=== PATIENT | male | born 1930 | race Caucasian/White ===

== ENCOUNTER 2016-07-07 17:58 | Emergency (ER) | payer MEDICARE, OTHER ==
[~2016-07-07] VITALS: Ht 152.4 cm; Wt 61.0 kg
[~2016-07-07 17:58] MED LIST: ADV25050 INHALATION; ASPI-664 PO; DOCU-144 PO; HYDR-3011 PO; HYDR-762 PO; HYDR25SU24 PR; IBUP400T22 PO; MAG355OR15 PO; MONT10TA24 PO; OMEP20CA16 PO; ONDA4TAB35 PO; PHEN-538 PO; PROP40TA4 PO; SENN-53 PO; SIMV20TA2 PO; TAMS-14 PO; TERA5CAP3 PO; TIOT18CA INHALATION; TYL500 PO
[2016-07-07 18:00] VITALS: Ht 152.4 cm; Wt 61.0 kg
--- NOTE | 2016-07-07 21:46 | ERA ---
ER Documentation Chief Complaint Date/Time DATE: 07/07/16 TIME: 21:44 Chief Complaint Asthma HPI The patient is a 85-year-old male, presenting to the ER because of multiple problems, asthma, prostate problem, hemorrhoids, painful urination. He has had these symptoms for many years, unable to see his physician. He denies fever, cough, neck pain, chest pain. He complains of minimal abdominal discomfort due to painful urination and hemorrhoids. He denies nausea, vomiting, diarrhea or constipation. He does not smoke nor drink Past medical history: Asthma, BPH, dyslipidemia Past surgical history: Hemorrhoidectomy, TURP ROS All systems reviewed and are negative except as per history of present illness. Medications Home Meds Active Scripts Hydrocortisone Acetate (Anusol-Hc) 25 Mg Supp.rect, 1 SUPP LA BID Y for HEMORROID PAIN/ITCHING, #12 SUPP.RECT Prov:GURPREET AGUILAR MD 07/07/16 Albuterol Sulfate* (Proair HFA*) 8.5 Gm Hfa.aer.ad, 2 PUFF INH Q4, #1 INHALER Prov:GURPREET AGUILAR MD 07/07/16 Acetaminophen* (Tylenol*) 500 Mg Tab, 500 MG PO Q4H Y for MILD PAIN LEVEL 1-3, # 20 TAB Prov:FAUSTO RUVALCABA DO 10/03/15 Ibuprofen* (Motrin*) 400 Mg Tab, 400 MG PO Q8 for PAIN, #30 TAB Prov:KELLIE BARRAZA MD 09/25/15 Mag Hydrox/Al Hydrox/Simeth (Maalox Ms Liquid) 360 Ml Oral.susp, 2 TSP PO TID, # 24 OZ Prov:KELLIE BARRAZA MD 09/25/15 Sennosides* (Senna Lax*) 8.6 Mg Tablet, 1 TAB PO DAILY, #30 TAB Prov:EVERETT FRIEDMAN MD 09/02/15 Docusate Sodium* (Colace*) 100 Mg Capsule, 100 MG PO TID, #30 CAP Prov:EVERETT FRIEDMAN MD 09/02/15 Phenazopyridine Hcl* (Pyridium*) 200 Mg Tab, 200 MG PO TID Y for URINARY PAIN, # 6 TAB Prov:EVERETT FRIEDMAN MD 09/02/15 Tamsulosin Hcl* (Flomax*) 0.4 Mg Cap.er.24h, 0.4 MG PO QPM, #30 CAP Prov:EVERETT FRIEDMAN MD 08/17/15 Ondansetron Hcl* (Zofran* ODT) 4 mg -ODT Tab.disper, 4 MG PO Q6 Y for NAUSEA AND /OR VOMITING, #30 TAB Prov:EVERETT FRIEDMAN MD 08/17/15 Hydrocodone Bit-Acetaminophen* ([place]*) 10-325 Mg Tablet, 1 TAB PO Q6 Y for PAIN , #7 TAB Prov:EVERETT FRIEDMAN MD 08/17/15 Hydrocortisone Acetate* (Anusol-HC*) 25 Mg/Supp.rect Supp.rect, 1 SUPP LA BID Y for HEMORROID PAIN/ITCHING, #12 SUPP.RECT Prov:DARNELL CRAIG MD 07/23/15 Reported Medications Propranolol Hcl* (Propranolol Hcl*) 40 Mg Tablet, 20 MG PO DAILY, TAB 07/23/15 Omeprazole* (Omeprazole*) 20 Mg Capsule.dr, 20 MG PO DAILY, #30 CAP 07/23/15 Montelukast Sodium* (Montelukast Sodium*) 10 Mg Tablet, 10 MG PO QHS, #30 TAB 07/23/15 Hydroxyzine Hcl* (Hydroxyzine Hcl*) 25 Mg Tablet, 25 MG PO DAILY Y for ITCHING, #30 TAB 07/23/15 Aspirin (Aspirin Low Dose) 81 Mg Tablet.dr, 81 MG PO DAILY, #30 TAB 07/23/15 Salmeterol Xinaf/Fluticasone* (Advair*) 250-50 Diskus Inhaler, 1 INH INHALATION BID, #1 INHALER 07/23/15 Terazosin Hcl* (Terazosin Hcl*) 5 Mg Capsule, 5 MG PO HS, CAP 07/23/15 Tiotropium [place]* (Spiriva*) 18 Mcg Cap.w.dev, 1 CAP INHALATION DAILY, #30 CAP 07/23/15 Simvastatin (Simvastatin) 20 Mg Tablet, 20 MG PO DAILY, #30 TAB 07/23/15 Allergies Allergies: Coded Allergies: No Known Allergy (Unverified , 07/23/15) PMhx/Soc History of Surgery: Yes Anesthesia Reaction: No Hx Neurological Disorder: No Hx Respiratory Disorders: Yes (ASTHMA) Hx Cardiac Disorders: Yes (htn) Hx Psychiatric Problems: No Hx Miscellaneous Medical Probl: Yes (PROSTATE PROBLEM) Hx Alcohol Use: No Hx Substance Use: No Hx Tobacco Use: No Physical Exam Vitals Vital Signs Date Time Temp Pulse Resp B/P Pulse Ox O2 Delivery O2 Flow Rate FiO2 07/07/16 18:00 99.1 68 18 145/65 96 Physical Exam Const: No acute distress. Head: Atraumatic. Eyes: Normal Conjunctiva. ENT: Normal External Ears, Nose and Mouth. Neck: Full range of motion. No meningismus. Resp: Clear to auscultation bilaterally. Cardio: Regular rate and rhythm, no murmurs. Abd: Soft, non distended, normal bowel sounds, non tender. Skin: No petechiae or rashes. Back: No midline or flank tenderness. Ext: No cyanosis, or edema. Neur: Awake and alert. No focal deficit Psych: Normal Mood and Affect. Result Diagram: 07/07/16223107/07/162231 Results 24 hrs Laboratory Tests Test 07/07/16 22:21 07/07/16 22:32 Bedside Urine pH (LAB) 5.5 Bedside Urine Protein (LAB) 1+ Bedside Urine Glucose (UA) Negative Bedside Urine Ketones (LAB) Trace Bedside Urine Blood Trace-intact Bedside Urine Nitrite (LAB) Negative Bedside Urine Leukocyte Esterase (L Negative White Blood Count 6.310^3/ul Red Blood Count 4.1810^6/ul Hemoglobin 12.3g/dl Hematocrit 37.8% Mean Corpuscular Volume 90.4fl Mean Corpuscular Hemoglobin 29.4pg Mean Corpuscular Hemoglobin Concent 32.5g/dl Red Cell Distribution Width 13.2% Platelet Count 01539^3/UL Mean Platelet Volume 9.8fl Neutrophils % 59.4% Lymphocytes % 25.6% Monocytes % 9.2% Eosinophils % 5.2% Basophils % 0.3% Nucleated Red Blood Cells % 0.0/100WBC Neutrophils # 3.810^3/ul Lymphocytes # 1.610^3/ul Monocytes # 0.610^3/ul Eosinophils # 0.310^3/ul Basophils # 0.010^3/ul Nucleated Red Blood Cells # 0.010^3/ul Sodium Level 142mmol/L Potassium Level 4.1mmol/L Chloride Level 103mmol/L Carbon Dioxide Level 28mmol/L Anion Gap 15 Blood Urea Nitrogen 24mg/dl Creatinine 0.95mg/dl Glucose Level 84mg/dl Calcium Level 9.1mg/dl Total Bilirubin 0.3mg/dl Direct Bilirubin 0.00mg/dl Indirect Bilirubin 0.3mg/dl Aspartate Amino Transf (AST/SGOT) 29IU/L Alanine Aminotransferase (ALT/SGPT) 31IU/L Alkaline Phosphatase 59IU/L Total Protein 7.5g/dl Albumin 4.2g/dl Globulin 3.30g/dl Albumin/Globulin Ratio 1.27 Lipase 73U/L Procedures/MDM MEDICAL MAKING DECISION: The patient is 85-year-old male, presenting with multiple chronic medical problems, asthma, hemorrhoids, dysuria. He is stable for outpatient follow-up. The differential diagnoses considered include but are not limited to GI malignancy, cholelithiasis, cholecystitis, cystitis, pancreatitis, hepatitis, gastritis, peptic ulcer disease, gastric ulcer, appendicitis, diverticulitis, cholangitis, choledocholithiasis, partial small bowel obstruction. Departure Diagnosis: Primary Impression: Asthma Additional Impressions: Hemorrhoid Dysuria Anemia Condition: Good Comments He was discharged with albuterol inhaler, Anusol HC Suppository and advised to follow-up with his physician in 1-2 day, return if any concern The patient's blood pressure was elevated (>120/80) but appears stable without evidence of hypertension emergency or urgency. The patient was counseled about the risks of hypertension and urged to pursue outpatient monitoring and therapy within a week with their primary care physician. GURPREET AGUILAR MD July 07, 2016 21:46
[2016-07-07 22:21] LABS: URINE BLOOD (Dip) POC Trace-intact (NEGATIVE)
[2016-07-07 23:01] LABS: ADD SCAN DIFF NO
[2016-07-07 23:07] LABS: BASOPHILS % 0.3 % (0.0-2.0); EOSINOPHILS # 0.3 10^3/ul (0.0-0.5); EOSINOPHILS % 5.2 % (0.0-7.0); HEMATOCRIT 37.8 % (42.0-52.0); HEMOGLOBIN 12.3 g/dl (14.0-18.0); LYMPHOCYTES # 1.6 10^3/ul (0.8-2.9); LYMPHOCYTES % 25.6 % (15.0-51.0); MEAN CORPUSCULAR HEMOGLOBIN 29.4 pg (29.0-33.0); MEAN CORPUSCULAR HGB CONC 32.5 g/dl (32.0-37.0); MEAN CORPUSCULAR VOLUME 90.4 fl (82.0-101.0); MEAN PLATELET VOLUME 9.8 fl (7.4-10.4); MONOCYTE # 0.6 10^3/ul (0.3-0.9); MONOCYTES % 9.2 % (0.0-11.0); NEUTROPHIL # 3.8 10^3/ul (1.6-7.5); NEUTROPHILS % 59.4 % (39.0-77.0); PLATELET COUNT 177 10^3/UL (140-415); RED BLOOD COUNT 4.18 10^6/ul (4.70-6.10); RED CELL DISTRIBUTION WIDTH 13.2 % (11.5-14.5); WHITE BLOOD COUNT 6.3 10^3/ul (4.8-10.8)
--- NOTE | 2016-07-07 23:26 | RADRPT ---
PROCEDURE: XR Chest. CLINICAL INDICATION: Pain. TECHNIQUE: Single frontal chest x-ray. COMPARISON: None. FINDINGS: The heart is mildly enlarged.. There is no congestive heart failure.. Minimal dependent atelectasis .. There is no pleural effusion. There is no pneumothorax. There are degenerative changes of the thoracic spine.. IMPRESSION: Cardiomegaly. Minimal dependent atelectasis. RPTAT: HMVK .Gene Gaspar MD, MD Date Time Electronically viewed and signed by .Gene Gaspar MD, on 07/07/2016 23:26 .K/
[2016-07-07 23:33] LABS: ALBUMIN 4.2 g/dl (3.3-4.9)
[2016-07-07 23:34] LABS: POTASSIUM 4.1 mmol/L (3.5-5.1)
[2016-07-07 23:36] LABS: BILIRUBIN,INDIRECT 0.3 mg/dl (0-1.1); BILIRUBIN,TOTAL 0.3 mg/dl (0.2-1.3); CREATININE 0.95 mg/dl (0.61-1.24)
[2016-07-07 23:37] LABS: ALBUMIN/GLOBULIN RATIO 1.27; CALCIUM 9.1 mg/dl (8.4-10.2); TOTAL PROTEIN 7.5 g/dl (6.1-8.1)
[2016-07-07] MEDS ORDERED: HYDR25SU23 PR (23:51)
[2016-07-07] MEDS ORDERED: ALBU8.5H3 INH (23:51)
[2016-07-08 00:10] VITALS: BP 137/66; PULSE 74; RESP 17; TEMP 98.7
== END 2016-07-08 00:34 | disposition home or self-care (01) ==
LOC: E/R 17:58
DX: J45.909 Unspecified asthma, uncomplicated (principal); K64.9 Unspecified hemorrhoids; R30.0 Dysuria; D64.9 Anemia, unspecified; I10 Essential (primary) hypertension; Z79.82 Long term (current) use of aspirin
CPT/HCPCS: 36415; 71010; 80053; 81003; 83690; 85025

== ENCOUNTER 2016-10-05 20:36 | Emergency (ER) | payer MEDICARE, OTHER ==
[~2016-10-05] VITALS: Wt 59.0 kg
[~2016-10-05 20:36] MED LIST changes: +ALBU8.5H3 INH; +HYDR25SU23 PR
--- NOTE | 2016-10-06 02:22 | RADRPT ---
PROCEDURE: XR Chest. CLINICAL INDICATION: Abdominal pain TECHNIQUE: Single frontal view of the chest was obtained COMPARISON: 07/07/2016 FINDINGS: There is hypoinflation of the lungs. This along with portable AP technique accentuates the size of the cardiac silhouette. The heart does not appear to be grossly enlarged. Mild tortuosity of thora cic aorta again seen. Calcification in the aortic arch. Degenerative changes in thoracic spine, ri ght acromioclavicular joint. There is minimal prominence of the lung interstitium likely minimal chr onic changes. Likely linear atelectasis/fibrosis in medial left lower lung again seen. IMPRESSION: No acute disease. Please see above. RPTAT: HJES .Severiano Jo MD, MD Date Time Electronically viewed and signed by .Severiano Jo MD, MD on 10/06/2016 02:21 .S/
--- NOTE | 2016-10-06 02:23 | RADRPT ---
PROCEDURE: Soft tissue of the neck CLINICAL INDICATION: Neck pain TECHNIQUE: AP and lateral soft tissue views of the neck were performed. COMPARISON: None FINDINGS: No abnormality of visualized soft tissues of the neck is seen. Degenerative changes are seen in the visualized cervical spine including vertebral body osteophyte formation at C3-4 and C4-5 and disk s pace narrowing at C4-5 and approximate 2 mm anterior displacement of C4 vertebral body on C5. Facet degenerative changes at multiple levels. Uncovertebral degenerative changes at multiple levels. C alcification in the aortic arch. IMPRESSION: No abnormality of the visualized soft tissues of the neck seen. Degenerative changes in visualized cervical spine. Please see above. RPTAT: HJES .Severiano Jo MD, MD Date Time Electronically viewed and signed by .Severiano Jo MD, on 10/06/2016 02:23 .S/
[2016-10-06 02:24] LABS: BASOPHILS % 0.3 % (0.0-2.0); EOSINOPHILS # 0.4 10^3/ul (0.0-0.5); EOSINOPHILS % 6.2 % (0.0-7.0); HEMATOCRIT 36.4 % (42.0-52.0); HEMOGLOBIN 12.2 g/dl (14.0-18.0); LYMPHOCYTES # 1.5 10^3/ul (0.8-2.9); LYMPHOCYTES % 24.5 % (15.0-51.0); MEAN CORPUSCULAR HEMOGLOBIN 30.1 pg (29.0-33.0); MEAN CORPUSCULAR HGB CONC 33.5 g/dl (32.0-37.0); MEAN CORPUSCULAR VOLUME 89.9 fl (82.0-101.0); MONOCYTE # 0.7 10^3/ul (0.3-0.9); MONOCYTES % 11.7 % (0.0-11.0); NEUTROPHIL # 3.5 10^3/ul (1.6-7.5); PLATELET COUNT 170 10^3/UL (140-415); RED BLOOD COUNT 4.05 10^6/ul (4.70-6.10); RED CELL DISTRIBUTION WIDTH 13.2 % (11.5-14.5); WHITE BLOOD COUNT 6.2 10^3/ul (4.8-10.8)
[2016-10-06 02:32] LABS: ADD UMIC YES; UR ASCORBIC ACID NEGATIVE (NEGATIVE); UR BILIRUBIN (Dip) NEGATIVE (NEGATIVE); UR BLOOD (Dip) NEGATIVE (NEGATIVE); UR CLARITY SLIGHTLY CLOUDY (CLEAR); UR COLOR YELLOW (YELLOW); UR GLUCOSE (Dip) NEGATIVE (NEGATIVE); UR KETONES (Dip) NEGATIVE (NEGATIVE); UR LEUKOCYTE ESTERASE (Dip) TRACE Leu/ul (NEGATIVE); UR MUCUS FEW /HPF (NONE SEEN); UR NITRITE (Dip) NEGATIVE (NEGATIVE); UR RBC 4 /HPF (0-5); UR SPECIFIC GRAVITY (Dip) 1.021 (1.003-1.030); UR TOTAL PROTEIN (Dip) 1+ mg/dl (NEGATIVE); UR UROBILINOGEN (Dip) NEGATIVE (NEGATIVE)
[2016-10-06] MEDS ORDERED: CYCL1DRO BOTH EYES (03:35)
[2016-10-06] MEDS ORDERED: LIDO20SO19 MM (03:35)
[2016-10-06] MEDS ORDERED: NAPR-683 PO (03:35)
[2016-10-06] MEDS ORDERED: OXYB5TAB22 PO (03:35)
[2016-10-06] MEDS ORDERED: THEO400T2 PO (03:35)
[2016-10-06] MEDS ORDERED: MECL-77 PO (03:35)
[2016-10-06 03:58] LABS: CALCIUM 8.9 mg/dl (8.4-10.2); CREATININE 1.1 mg/dl (0.61-1.24); POTASSIUM 3.9 mmol/L (3.5-5.1)
[2016-10-06 04:54] VITALS: BP 108/68; PULSE 71; RESP 20
--- NOTE | 2016-10-06 05:08 | ERD ---
ER Documentation Chief Complaint Date/Time DATE: 10/06/16 TIME: 05:03 Chief Complaint AP and SOB. Urine problem HPI 86-year-old male presenting with multiple complaints. He states that for 3 months he has been having neck discomfort in the front portion of his neck with pain. He states that sometimes he has difficulty breathing. He has not seen his primary care doctor about this. He also complains of constipation but did have a bowel movement today that was normal. He states that he has a lot of prostate problems as well but denies any dysuria or hematuria. He is not taking any of his medications because he does not think he needs them. He denies any fever, chills, chest pain, shortness of breath at this time. When asked him why he has not talked to his primary care doctor about this, he has no answer. ROS All systems reviewed and are negative except as per history of present illness. Medications Home Meds Active Scripts Albuterol Sulfate* (Proair HFA*) 8.5 Gm Hfa.aer.ad, 2 PUFF INH Q4, #1 INHALER Prov:GURPREET AGUILAR MD 07/07/16 Docusate Sodium* (Colace*) 100 Mg Capsule, 100 MG PO TID, #30 CAP Prov:EVERETT FRIEDMAN MD 09/02/15 Tamsulosin Hcl* (Flomax*) 0.4 Mg Cap.er.24h, 0.4 MG PO QPM, #30 CAP Prov:EVERETT FRIEDMAN MD 08/17/15 Hydrocortisone Acetate* (Anusol-HC*) 25 Mg/Supp.rect Supp.rect, 1 SUPP OK BID Y for HEMORROID PAIN/ITCHING, #12 SUPP.RECT Prov:DARNELL CRAIG MD 07/23/15 Reported Medications Oxybutynin Chloride* (Ditropan* XL) 5 Mg Tabsr, 5 MG PO DAILY, TAB.SA 10/06/16 Naproxen* (Naproxen*) 250 Mg Tablet, 250 MG PO BID, TAB 10/06/16 Meclizine Hcl* (Meclizine Hcl*) 25 Mg Tablet, 25 MG PO Q8H Y for DIZZINESS, TAB 10/06/16 Lidocaine (Lidocaine Viscous) 100 Ml Soln, 100 ML MM 10/06/16 Theophylline Anhydrous* (Theophylline* ER) 400 Mg Tablet.sa, 400 MG PO BID, TAB.SA 10/06/16 Cyclosporine (RESTASIS) 1 Each Droperette, 1 DROP BOTH EYES Q12, #1 BOX 10/06/16 Omeprazole* (Omeprazole*) 20 Mg Capsule.dr, 20 MG PO DAILY, #30 CAP 07/23/15 Montelukast Sodium* (Montelukast Sodium*) 10 Mg Tablet, 10 MG PO QHS, #30 TAB 07/23/15 Hydroxyzine Hcl* (Hydroxyzine Hcl*) 25 Mg Tablet, 25 MG PO DAILY Y for ITCHING, #30 TAB 07/23/15 Aspirin (Aspirin Low Dose) 81 Mg Tablet.dr, 81 MG PO DAILY, #30 TAB 07/23/15 Terazosin Hcl* (Terazosin Hcl*) 5 Mg Capsule, 5 MG PO HS, CAP 07/23/15 Tiotropium [place]* (Spiriva*) 18 Mcg Cap.w.dev, 1 CAP INHALATION DAILY, #30 CAP 07/23/15 Simvastatin (Simvastatin) 20 Mg Tablet, 20 MG PO DAILY, #30 TAB 07/23/15 Discontinued Reported Medications Propranolol Hcl* (Propranolol Hcl*) 40 Mg Tablet, 20 MG PO DAILY, TAB 07/23/15 Salmeterol Xinaf/Fluticasone* (Advair*) 250-50 Diskus Inhaler, 1 INH INHALATION BID, #1 INHALER 07/23/15 Discontinued Scripts Hydrocortisone Acetate (Anusol-Hc) 25 Mg Supp.rect, 1 SUPP OK BID Y for HEMORROID PAIN/ITCHING, #12 SUPP.RECT Prov:GURPREET AGUILAR MD 07/07/16 Acetaminophen* (Tylenol*) 500 Mg Tab, 500 MG PO Q4H Y for MILD PAIN LEVEL 1-3, # 20 TAB Prov:FAUSTO RUVALCABA DO 10/03/15 Ibuprofen* (Motrin*) 400 Mg Tab, 400 MG PO Q8 for PAIN, #30 TAB Prov:KELLIE BARRAZA MD 09/25/15 Mag Hydrox/Al Hydrox/Simeth (Maalox Ms Liquid) 360 Ml Oral.susp, 2 TSP PO TID, # 24 OZ Prov:KELLIE BARRAZA MD 09/25/15 Sennosides* (Senna Lax*) 8.6 Mg Tablet, 1 TAB PO DAILY, #30 TAB Prov:EVERETT FRIEDMAN MD 09/02/15 Phenazopyridine Hcl* (Pyridium*) 200 Mg Tab, 200 MG PO TID Y for URINARY PAIN, # 6 TAB Prov:EVERETT FRIEDMAN MD 09/02/15 Ondansetron Hcl* (Zofran* ODT) 4 mg -ODT Tab.disper, 4 MG PO Q6 Y for NAUSEA AND /OR VOMITING, #30 TAB Prov:EVERETT FRIEDMAN MD 08/17/15 Hydrocodone Bit-Acetaminophen* ([place]*) 10-325 Mg Tablet, 1 TAB PO Q6 Y for PAIN , #7 TAB Prov:EVERETT FRIEDMAN MD 08/17/15 Allergies Allergies: Coded Allergies: No Known Allergy (Unverified , 07/23/15) PMhx/Soc History of Surgery: Yes Anesthesia Reaction: No Hx Neurological Disorder: No Hx Respiratory Disorders: Yes (ASTHMA) Hx Cardiac Disorders: Yes (HTN) Hx Psychiatric Problems: No Hx Miscellaneous Medical Probl: Yes (PROSTATE PROBLEM) Hx Alcohol Use: No Hx Substance Use: No Hx Tobacco Use: No Smoking Status: Never smoker FmHx Family History: other (Unable to state) Physical Exam Vitals Vital Signs Date Time Temp Pulse Resp B/P Pulse Ox O2 Delivery O2 Flow Rate FiO2 10/06/16 04:54 71 20 108/68 99 10/06/16 02:35 77 20 110/45 99 10/05/16 20:48 99.1 74 20 131/63 99 Physical Exam Const: Well-appearing, no apparent distress Head: Atraumatic Eyes: Normal Conjunctiva ENT: Normal External Ears, Nose and Mouth. Neck: Full range of motion..~ No meningismus. Resp: Clear to auscultation bilaterally Cardio: Regular rate and rhythm, no murmurs Abd: Soft, non tender, non distended. Normal bowel sounds Skin: No petechiae or rashes Back: No midline or flank tenderness Ext: No cyanosis, or edema Neur: Awake and alert, moving all extremities, no facial asymmetry Psych: Normal Mood and Affect Result Diagram: 10/06/163410/06/1634 Results 24 hrs Laboratory Tests Test 10/06/16 00:35 White Blood Count 6.210^3/ul Red Blood Count 4.0510^6/ul Hemoglobin 12.2g/dl Hematocrit 36.4% Mean Corpuscular Volume 89.9fl Mean Corpuscular Hemoglobin 30.1pg Mean Corpuscular Hemoglobin Concent 33.5g/dl Red Cell Distribution Width 13.2% Platelet Count 96881^3/UL Mean Platelet Volume 10.0fl Neutrophils % 57.0% Lymphocytes % 24.5% Monocytes % 11.7% Eosinophils % 6.2% Basophils % 0.3% Nucleated Red Blood Cells % 0.0/100WBC Neutrophils # 3.510^3/ul Lymphocytes # 1.510^3/ul Monocytes # 0.710^3/ul Eosinophils # 0.410^3/ul Basophils # 0.010^3/ul Nucleated Red Blood Cells # 0.010^3/ul Urine Color YELLOW Urine Clarity SLIGHTLY CLOUDY Urine pH 5.0 Urine Specific [place] 1.021 Urine Ketones NEGATIVEmg/dL Urine Nitrite NEGATIVEmg/dL Urine Bilirubin NEGATIVEmg/dL Urine Urobilinogen NEGATIVEmg/dL Urine Leukocyte Esterase TRACELeu/ul Urine Microscopic RBC 4/HPF Urine Microscopic WBC 27/HPF Urine Mucus FEW/HPF Urine Hemoglobin NEGATIVEmg/dL Urine Glucose NEGATIVEmg/dL Urine Total Protein 1+mg/dl Sodium Level 144mmol/L Potassium Level 3.9mmol/L Chloride Level 106mmol/L Carbon Dioxide Level 24mmol/L Anion Gap 18 Blood Urea Nitrogen 23mg/dl Creatinine 1.10mg/dl Glucose Level 98mg/dl Calcium Level 8.9mg/dl Procedures/MDM EMERGENT LABS AND DIAGNOSTIC STUDIES: Lab Results above were reviewed and interpreted by me. CBC: no significant anemia or evidence of infection CMP: No evidence of electrolyte abnormality, renal failure, hypoglycemia, liver failure, or biliary obstruction UA: Positive WBCs and trace leuk esterase, urine culture pending Radiology Results as interpreted by Radiology below were reviewed by Ct Vallejo MD: Chest x-ray showed no acute abnormalities Neck soft tissue x-ray showed no acute abnormalities Initial Nursing notes reviewed. Previous Medical Records requested via the Electronic Health Record. EMERGENCY DEPARTMENT COURSE / MEDICAL DECISION MAKING: Patient is presenting with multiple complaints, all of them seem chronic. Vitals are stable and he is afebrile and well-appearing on the date I do not suspect acute surgical abdomen or serious bacterial infection. He has no evidence of neck swelling or oropharyngeal swelling. X-rays were done and did not show any acute abnormalities. I believe the patient is stable for discharge at this time. His urine was sent for culture and he was told that he would be called if it was positive for infection. However the patient is asymptomatic at this time so I do not think he needs treatment. I encouraged him to take his home medications and follow-up with his primary care doctor to discuss all of his complaints. If he has any new symptoms, he was encouraged to return to the ED. Patient's blood pressure was elevated (>120/80) but appears stable without evidence of hypertensive emergency or urgency. The patient was counseled about the risks of hypertension and urged to pursue outpatient monitoring and therapy within a week with their primary care physician. Departure Diagnosis: Primary Impression: Dyspnea Dyspnea type: unspecified Qualified Code: R06.00 - Dyspnea, unspecified type Additional Impression: Constipation Constipation type: other constipation type Qualified Code: K59.09 - Other constipation Condition: Stable Patient Instructions: Constipation (Adult), Dyspnea Referrals: COMM[facility]ITY CLIN[facility] YOU HAVE RECEIVED A MEDICAL SCREENING EXAM AND THE RESULTS INDICATE THAT YOU DO NOT HAVE A CONDITION THAT REQUIRES URGENT TREATMENT IN THE EMERGENCY DEPARTMENT. FURTHER EVALUATION AND TREATMENT OF YOUR CONDITION CAN WAIT UNTIL YOU ARE SEEN IN YOUR DOCTORS OFFICE WITHIN THE NEXT 1-2 DAYS. IT IS YOUR RESPONSIBILITY TO MAKE AN APPOINTMENT FOR FOLOW-UP CARE. IF YOU HAVE A PRIMARY DOCTOR --you should call your primary doctor and schedule an appointment IF YOU DO NOT HAVE A PRIMARY DOCTOR YOU CAN CALL OUR PHYSICIAN REFERRAL HOTLINE AT IF YOU CAN NOT AFFORD TO SEE A PHYSICIAN YOU CAN CHOSE FROM THE FOLLOWING FORMERLY [facility] [address] [facility]. [facility] [address] [facility] [address] [facility] [address] [facility] [address] [facility]. [facility] [address] [facility]. [facility]. [address] Additional Instructions: make an appointment with your primary care doctor in 1-2 days. All your tests today were normal except your urine test. We will check for infection and call you back in 2-3 days with the results if it is abnormal. REENA VALLEJO MD Oct 06, 2016 05:08
== END 2016-10-06 04:50 | disposition home or self-care (01) ==
LOC: E/R 20:36
DX: R06.00 Dyspnea, unspecified (principal); K59.09 Other constipation; J45.909 Unspecified asthma, uncomplicated; I10 Essential (primary) hypertension; Z79.82 Long term (current) use of aspirin
CPT/HCPCS: 36415; 70360; 71010; 80048; 81001; 85025; 87086

== ENCOUNTER 2017-05-17 14:02 | Emergency (ER) | END 2017-05-17 18:45 | disposition home or self-care (01) ==